=== PATIENT | male | born 2000 | race Caucasian/White ===

== ENCOUNTER → 2018-09-13 | Outpatient (CLI) | payer OTHER ==
[2018-09-13 20:07] LABS: Adenovirus F 40/41 Not Detected (NOT DETECT); Astrovirus Not Detected (NOT DETECT); Campylobacter Sp Not Detected (NOT DETECT); Cryptosporidium Not Detected (NOT DETECT); Cyclospora Cayetanensis Not Detected (NOT DETECT); E. Coli O157 Not Detected (NOT DETECT); Entamoeba Histolytica Not Detected (NOT DETECT); Enteroaggregative E. coli-EAEC Not Detected (NOT DETECT); Enteropathogenic E. coli-EPEC Not Detected (NOT DETECT); Enterotoxigenic E. coli-ETEC Not Detected (NOT DETECT); Giardia Lamblia Not Detected (NOT DETECT); Norovirus GI/GII Not Detected (NOT DETECT); Plesiomonas Shigelloides Not Detected (NOT DETECT); Rotavirus A Not Detected (NOT DETECT); Salmonella Sp Not Detected (NOT DETECT); Sapovirus Not Detected (NOT DETECT); Shiga Toxin-prod E. coli-STEC Not Detected (NOT DETECT); Shigella/Enteroin E. coli-EIEC Not Detected (NOT DETECT); Vibrio Cholerae Not Detected (NOT DETECT); Vibrio Sp Not Detected (NOT DETECT); Yersinia Enterocolitica Not Detected (NOT DETECT)
== END | disposition home or self-care (01) ==
LOC: LAB 18:00 → LAB SHORT 18:00
PROVIDERS: Emergency Medicine
DX: R19.7 Diarrhea, unspecified (principal)
CPT/HCPCS: 87507

== ENCOUNTER 2018-09-20 07:49 | Day surgery (SDC) | payer OTHER ==
[~2018-09-20] VITALS: Ht 175.3 cm; Wt 96.7 kg
== END 2018-09-20 09:47 | disposition home or self-care (01) ==
LOC: ORSCSDS 07:49
PROVIDERS: Internal Medicine Gastroenterology
PROC: 0DBE8ZX Excision of Large Intestine, Via Natural or Artificial Opening Endoscopic, Diagnostic (ICD-10-PCS; principal; 2018-09-20 09:00)
PROC: 0DBB8ZX Excision of Ileum, Via Natural or Artificial Opening Endoscopic, Diagnostic (ICD-10-PCS; principal; 2018-09-20 09:00)
DX: R19.7 Diarrhea, unspecified (principal); R10.9 Unspecified abdominal pain; K64.8 Other hemorrhoids; E66.9 Obesity, unspecified
CPT/HCPCS: 88305; J2250; J2704; J7120

== ENCOUNTER 2023-11-20 21:18 | Emergency (ER) | payer BC, OTHER ==
[~2023-11-20] VITALS: Ht 172.7 cm; Wt 102.1 kg
[2023-11-20 21:24] VITALS: BP 156/106
[2023-11-20] MEDS ORDERED: Triamcinolone Inj Susp 40 MG / ML 1ML Vial IM ONE (21:25)
[2023-11-20] MEDS ORDERED: EPIPEN 2-P0.3 MG/0.1 IM (21:28)
[2023-11-20] MEDS ORDERED: Betamethasone Sod Phos/Acetate 6 MG/ML 5ML VIAL IM ONE (21:30)
== END 2023-11-20 21:43 | disposition home or self-care (01) ==
LOC: ER 21:18
DX: L23.7 Allergic contact dermatitis due to plants, except food (principal)
CPT/HCPCS: 96372; 99283-25; J0702; J3301

== ENCOUNTER 2024-04-29 20:38 | Emergency (ER) | payer BC, OTHER ==
[~2024-04-29] VITALS: Ht 172.7 cm; Wt 102.1 kg
[~2024-04-29 20:38] MED LIST: EPIPEN 2-P0.3 MG/0.1 IM
[2024-04-29 21:05] VITALS: BP 144/76
[2024-04-29] MEDS ORDERED: Robaxin750 MG PO (22:00)
== END 2024-04-29 22:11 | disposition home or self-care (01) ==
LOC: ER 20:38
DX: M25.512 Pain in left shoulder (principal); M54.2 Cervicalgia
CPT/HCPCS: 73030; 99283-25